=== PATIENT | female | born 1980 | race Hispanic/Latino ===

== ENCOUNTER 2018-07-25 13:40 | Emergency (ER) | payer SELFPAY ==
[~2018-07-25] VITALS: Ht 167.6 cm; Wt 86.2 kg
[~2018-07-25 13:40] MED LIST: DOC-Q-LACE100 MG PO; DRISDOL50000 UNIT PO; METOPROLOL TART25 MG PO; METPCK PO; MIRTAZAPINE15 MG PO; PEPCID20 MG PO; PNT40V IV; PROMETHAZINE HC25 M1 PO; PROMETHAZINE HC25 MG PR; PROTONIX40 MG PO; TPN ELECTROLYTE20 M1 IV; TYLENOL # 31 EA PO; ULTRAM50 MG PO; ZOFRAN8 MG PO
--- OUTSIDE RECORDS SUMMARY | 2018-07-25 13:42 | XMS REPORT ---
Author Author [facility] Address Unknown Phone Unavailable Care Team Providers Care [employer] Name Role Phone Unavailable Unavailable Payers Payer Name Policy Type Policy Number Effective Date Expiration Date Problems This patient has no known problems. Allergies, Adverse Reactions, Alerts Allergy Name Allergy Type Status Severity Reaction(s) Onset Date Inactive Date Treating Clinician Comments No Known Allergies DA Active U 2018-07-21 00:00:00 No Known Allergies DA Active U 2015-10-21 00:00:00 Medications This patient has no known medications.
== END 2018-07-25 15:24 | disposition left against medical advice (07) ==
LOC: ER 13:40
DX: H57.11 Ocular pain, right eye (principal)